=== PATIENT | female | born 1995 | race Caucasian/White ===

== ENCOUNTER 2017-04-12 18:32 | Emergency (ER) | payer MEDICAID ==
[~2017-04-12] VITALS: Ht 165.1 cm; Wt 63.1 kg
[~2017-04-12 18:32] MED LIST: ALBU18HF2 IH; ALBU8HFA PO; ALPR-624 PO; AZIT250T27 PO; CLIN-26 PO; CLIN-79 PO; CLIN300C17 PO; PRED50TA PO
[2017-04-12 19:11] VITALS: BP 150/120
[2017-04-12] MEDS ORDERED: acetaminophen 325mg tablet PO ONE (19:20)
[2017-04-12] MEDS ORDERED: ibuprofen 200mg tablet PO ONE (19:25)
[2017-04-12 20:01] LABS: BASOPHILS # (AUTO) 0.1 X10'3 (0-0.2); BASOPHILS % (AUTO) 0.4 % (0-1); EOSINOPHILS # (AUTO) 0.2 X10'3 (0-0.9); EOSINOPHILS % (AUTO) 0.7 % (0-6); HEMATOCRIT 39.4 % (35.0-45.0); HEMOGLOBIN 13.4 g/dl (12.0-16.0); LYMPHOCYTES # (AUTO) 2.8 X10'3 (1.1-4.8); LYMPHOCYTES % (AUTO) 12.8 % (21-51); MEAN CORPUSCULAR HEMOGLOBIN 28.8 PG (27.0-31.0); MEAN CORPUSCULAR VOLUME 84.7 FL (78-98); MEAN PLATELET VOLUME 8.2 FL (7.4-10.4); MONOCYTES # (AUTO) 1.2 X10'3 (0-0.9); MONOCYTES % (AUTO) 5.4 % (2-12); NEUTROPHILS # (AUTO) 17.4 X10'3 (1.8-7.7); NEUTROPHILS % (AUTO) 80.7 % (42-75); PLATELET COUNT 425 X10'3 (140-440); RED BLOOD COUNT 4.65 X10'6 (4.20-5.60); RED CELL DISTRIBUTION WIDTH 17.2 % (11.5-14.5); WHITE BLOOD COUNT 21.6 X10'3 (4.5-11.0)
[2017-04-12 20:11] LABS: PROTHROMBIN TIME 10.8 SECONDS (9.0-12.0)
[2017-04-12 20:14] LABS: CLARITY,URINE CLEAR (Clear); COLOR,URINE YELLOW (Yellow); GLUCOSE, URINE NEGATIVE (Neg); KETONES,URINE NEGATIVE (Neg); LEUKOCYTE ESTERASE ,URINE SMALL (Neg); NITRITES, URINE NEGATIVE (Neg); OCCULT BLOOD,URINE NEGATIVE (Neg); PH,URINE 6.5 (4.8-8.0); PROTEIN,URINE NEGATIVE (Neg)
[2017-04-12 20:15] LABS: ALANINE AMINOTRANSFERASE 155 U/L (12-78); ALBUMIN 3.2 G/DL (3.4-5.0); ALBUMIN/GLOBULIN RATIO 0.5 (1.1-1.5); ALKALINE PHOSPHATASE 100 IU/L (46-116); AMYLASE 22 U/L (25-115); ANION GAP 8 (8-16); ASPARTATE AMINO TRANSFERASE 105 U/L (10-37); BILIRUBIN,TOTAL 1.4 MG/DL (0.1-1.0); BLOOD UREA NITROGEN 10 MG/DL (7-18); BUN/CREATININE RATIO 13.3 (6.6-38.0); CALCIUM 9.4 MG/DL (8.5-10.1); CHLORIDE 98 MMOL/L (99-107); CREATININE 0.75 MG/DL (0.40-0.90); LIPASE 81 U/L (73-393); POTASSIUM 4.6 MMOL/L (3.5-5.1); SODIUM 133 MMOL/L (135-145); TOTAL CARBON DIOXIDE 26.7 MMOL/L (24-32); TOTAL PROTEIN 9.5 G/DL (6.4-8.2); eGFR > 90 ML/MIN
[2017-04-12 20:16] LABS: URINE HCG NEGATIVE (NEG)
[2017-04-12 20:21] LABS: UA COLLECTION TYPE CLN CATCH MIDSTREAM
[2017-04-12 20:22] LABS: BACTERIA,URINE FEW /HPF (Neg); RBC,URINE 0-2 /HPF (0-2); SQUAMOUS EPITHELIAL CELL,UR FEW /LPF (FEW)
[2017-04-12 20:26] LABS: GLUCOSE 99 MG/DL (70-104)
== END 2017-04-12 20:57 | disposition left against medical advice (07) ==
LOC: ER 19:11
DX: R07.81 Pleurodynia (principal)
CPT/HCPCS: 36415; 80053; 81001; 81025; 82150; 83690; 84145; 85025; 85610; 87088; 93005; 99281

== ENCOUNTER 2017-06-20 20:19 | Emergency (ER) | payer MEDICAID ==
[~2017-06-20] VITALS: Ht 162.6 cm; Wt 65.5 kg
[2017-06-20 20:25] VITALS: BP 155/91
== END 2017-06-20 21:12 | disposition left against medical advice (07) ==
LOC: ER 20:19
DX: K13.79 Other lesions of oral mucosa (principal); Z53.21 Procedure and treatment not carried out due to patient leaving prior to being seen by health care provider

== ENCOUNTER 2017-08-08 00:59 | Emergency (ER) | payer MEDICAID ==
[~2017-08-08] VITALS: Ht 167.6 cm; Wt 69.0 kg
[~2017-08-08 00:59] MED LIST changes: -CLIN-79 PO; +CLIN150C8 PO
[2017-08-08 02:25] VITALS: BP 131/71
== END 2017-08-08 02:27 | disposition home or self-care (01) ==
LOC: ER 01:00
DX: R11.0 Nausea (principal); R53.81 Other malaise; G89.29 Other chronic pain; J45.909 Unspecified asthma, uncomplicated; Z86.14 Personal history of Methicillin resistant Staphylococcus aureus infection; F15.90 Other stimulant use, unspecified, uncomplicated; F11.90 Opioid use, unspecified, uncomplicated; F17.200 Nicotine dependence, unspecified, uncomplicated; Z79.899 Other long term (current) drug therapy; Z60.2 Problems related to living alone; Z59.0 Homelessness; Z56.0 Unemployment, unspecified
CPT/HCPCS: 99283

== ENCOUNTER 2018-07-25 21:15 | Inpatient (IN) | payer MEDICAID ==
[~2018-07-25] VITALS: Ht 167.6 cm; Wt 79.4 kg
[~2018-07-25 21:15] MED LIST changes: +CEPH500C5 PO; +IBUP-1985 PO
[2018-07-25 22:33] LABS: ALANINE AMINOTRANSFERASE 25 U/L (12-78); ALBUMIN/GLOBULIN RATIO 0.6 (1.1-1.5); ALKALINE PHOSPHATASE 112 IU/L (46-116); ANION GAP 4 (8-16); ASPARTATE AMINO TRANSFERASE 23 U/L (10-37); BILIRUBIN,TOTAL 1.3 MG/DL (0.1-1.0); BLOOD UREA NITROGEN 9 MG/DL (7-18); CALCIUM 8.9 MG/DL (8.5-10.1); CHLORIDE 100 MMOL/L (99-107); CREATININE 0.75 MG/DL (0.40-0.90); GLUCOSE 105 MG/DL (70-104); POTASSIUM 3.7 MMOL/L (3.5-5.1); SODIUM 132 MMOL/L (135-145); TOTAL CARBON DIOXIDE 28.1 MMOL/L (24-32); TOTAL PROTEIN 8.2 G/DL (6.4-8.2); eGFR > 90 ML/MIN
--- NOTE | 2018-07-25 22:45 | NUR ---
AFTER 2 PIV ATTEMPTS ASKED MOLD LOFT WORKER MARCI FOR ASSISANCE IN STARTING AN IV
[2018-07-25 23:36] LABS: BASOPHILS % (AUTO) 0.2 % (0-1); EOSINOPHILS # (AUTO) 0.3 X10'3 (0-0.9); EOSINOPHILS % (AUTO) 2.2 % (0-6); HEMATOCRIT 34.8 % (35.0-45.0); HEMOGLOBIN 11.6 g/dl (12.0-16.0); LYMPHOCYTES # (AUTO) 1.4 X10'3 (1.1-4.8); LYMPHOCYTES % (AUTO) 9.4 % (21-51); MEAN CORPUSCULAR HEMOGLOBIN 28.4 PG (27.0-31.0); MEAN CORPUSCULAR HGB CONC 33.4 g/dL (33.0-36.5); MEAN PLATELET VOLUME 8.9 FL (7.4-10.4); MONOCYTES # (AUTO) 0.9 X10'3 (0-0.9); MONOCYTES % (AUTO) 6.1 % (2-12); NEUTROPHILS # (AUTO) 12.4 X10'3 (1.8-7.7); NEUTROPHILS % (AUTO) 82.1 % (42-75); PLATELET COUNT 251 X10'3 (140-440); RED BLOOD COUNT 4.09 X10'6 (4.20-5.60); RED CELL DISTRIBUTION WIDTH 15.5 % (11.5-14.5); WHITE BLOOD COUNT 15.1 X10'3 (4.5-11.0)
[2018-07-26] MEDS ORDERED: vancomycin/NS 1 GM ADD-VANTAGE 250 ML IV ONE
[2018-07-26] MEDS ORDERED: piperacillin/tazo 3.375gm/50ml 50 ML IV ONE
[2018-07-26] MEDS ORDERED: morphine 4 MG/ML inj SYRINge IV ONE ×3 (00:05→04:05)
[2018-07-26] MEDS ORDERED: ondansetron/PF 4mg/2ml inj IV ONE (00:05)
[2018-07-26] MEDS ORDERED: normal saline 1000ML IV soln IV ONE (00:05)
--- NOTE | 2018-07-26 00:40 | NUR ---
ATTEMPTED RIGHT EJ
[2018-07-26 00:42] LABS: MAGNESIUM 1.7 MG/DL (1.5-2.4)
--- NOTE | 2018-07-26 00:59 | NUR ---
informed dr haas of 4 different rns attempting iv lines including tonya
--- NOTE | 2018-07-26 01:02 | NUR ---
2 rn verbal consent for central line placement
[2018-07-26] MEDS ORDERED: iohexol 300mg/ml 100ml inj. ONE (01:10)
--- NOTE | 2018-07-26 01:38 | NUR ---
to cta after cxr confirmed placement per dr haas
--- NOTE | 2018-07-26 02:02 | NUR ---
BACK IN ROOM, ULTRASOUND IN PROGRESS
[2018-07-26] MEDS ORDERED: magnesium hydroxide 30ml (MOM) UD suspension PO PRN (03:35)
[2018-07-26] MEDS ORDERED: mag hydrox/Alum hydrox/simeth 30ml oral suspension PO PRN (03:35)
[2018-07-26] MEDS ORDERED: ondansetron/PF 4mg/2ml inj IV PRN (03:35)
[2018-07-26] MEDS ORDERED: acetaminophen 325mg tablet PO PRN (03:35)
[2018-07-26] MEDS ORDERED: morphine/NS 5 mg/ml CADD 50 ML IV SCH (03:37)
[2018-07-26] MEDS ORDERED: CADD PCA waste documentation MC PRN (03:40)
[2018-07-26] MEDS ORDERED: naloxone 0.4 mg/ml inj IV PRN (03:40)
[2018-07-26] MEDS: normal saline 1000ml 1,000 ML IV SCH ×2 (03:47→13:32)
--- NOTE | 2018-07-26 04:01 | NUR ---
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
--- NOTE | 2018-07-26 04:50 | NUR ---
NURSING SULFATE DRIER MACHINE OPERATOR WILL CALL BACK REGARDING ROOM, IF ROOM NOT AVAILABLE, HE WILL BRING A CADD PUMP AND THE MEDICATION
--- NOTE | 2018-07-26 05:11 | NUR ---
PHONNE REPORT TO MAME TREADWELL; PATIENT DOES NOT TAKE ANY HOME MEDICATIONS
--- NOTE | 2018-07-26 05:30 | NUR ---
Received report from Crystal VILCHIS from ED. Patient came up to floor via gurney. Vitals taken. MRSA swab done. Bed locked & low position. Call light within reach.
[2018-07-26 05:44] VITALS: BP 114/51
--- NOTE | 2018-07-26 06:41 | NUR ---
Problems reprioritized. Patient report given, questions answered & plan of care reviewed with Luz VILCHIS.
[2018-07-26] MEDS: morphine/NS 5 mg/ml CADD 50 ML IV SCH ×2 (07:59→09:00)
[2018-07-26] MEDS ORDERED: heparin, porcine 5000 units/ml vial SQ SCH (08:00)
[2018-07-26] MEDS ORDERED: piperacillin/tazo 3.375gm/50ml 50 ML IV SCH (08:00)
[2018-07-26 10:00] VITALS: BP 108/53
[2018-07-26] MEDS ORDERED: vancomycin/NS 1 GM ADD-VANTAGE 250 ML IV SCH ×2 (10:00→12:00)
[2018-07-26] MEDS ORDERED: HYDROcodone/acetaminophen 10/325mg tab PO PRN (11:05)
[2018-07-26] MEDS ORDERED: morphine 2 MG/ML inj. syringe IV PRN (11:25)
[2018-07-26 13:33] LABS: HCG SERUM QL NEGATIVE
--- NOTE | 2018-07-26 14:32 | NUR ---
PAGER ID: [phone] MESSAGE: Luz [phone] Tomas in [phone] she is attempting to leave [facility] could you please call me Addendum: 07/26/18 at 1447 by Jackie Fairbanks RN spoke to MD- explained that the pt's family member, an aunt, is very confrontational and demanding nicotine patch, something for anxiety, and for her treatment to include treating her for her heroin addiction. ALso they want the central line out of her neck because it is uncomfortable. Pt is trying to leave [facility] and was caught by another RN on the way to the elevator. She has been sleeping all day and never asked for anything for anxiety, or a nicotine patch. The PICC line RN will be here to place an extended and the pt was notified of this twice earlier today. I explained to the pt that MD will not be able to rx abx if she leaves ama, and that the pt really should stay for IV abx due to infection in her leg which will not heal on its own. Still demanding to speak to the MD. MD will not be able to be able to come up at this time and states that my explanation to the pt is sufficient. Orders received for one time dose of ativan and a nicotine patch, should the pt choose to stay. ANd I will remove the central line promptly.
[2018-07-26] MEDS ORDERED: lactobacillus rhamnosus 10,000 MMU CELLS/CAPSULE PO SCH (20:00)
[2018-07-27] MEDS ORDERED: VANCOMYCIN LEVEL IV ONE (01:30)
== END 2018-07-26 15:10 | disposition left against medical advice (07) | DRG 383 ==
LOC: ER 21:16 → ORTHO 4S 07-26 04:53
PROVIDERS: ADMIT Internal Medicine; ATTEND Internal Medicine
PROC: 02HV33Z Insertion of Infusion Device into Superior Vena Cava, Percutaneous Approach (ICD-10-PCS; principal; 2018-07-25)
PROC: B548ZZA Ultrasonography of Superior Vena Cava, Guidance (ICD-10-PCS; 2018-07-25)
PROC: BQ2S1ZZ Computerized Tomography (CT Scan) of Left Lower Extremity using Low Osmolar Contrast (ICD-10-PCS; 2018-07-26)
DX: L03.116 Cellulitis of left lower limb (principal); K72.90 Hepatic failure, unspecified without coma; B19.20 Unspecified viral hepatitis C without hepatic coma; J45.909 Unspecified asthma, uncomplicated; Z60.2 Problems related to living alone; Z53.21 Procedure and treatment not carried out due to patient leaving prior to being seen by health care provider; F11.90 Opioid use, unspecified, uncomplicated; F15.90 Other stimulant use, unspecified, uncomplicated; G89.29 Other chronic pain; Z59.0 Homelessness
CPT/HCPCS: 36415; 36556; 71045; 73701; 80053; 83605; 83735; 84145; 84703; 85025; 87040; 87070; 93971; 96365; 96368; 96375; 96376; 99285; G0378; J1644; J2270; J2405; J2543; J3370; J7030; Q9967

== ENCOUNTER 2018-11-09 00:08 | Emergency (ER) | payer MEDICAID ==
[~2018-11-09] VITALS: Ht 167.6 cm; Wt 72.7 kg
[2018-11-09 00:13] VITALS: BP 126/74
[2018-11-09] MEDS ORDERED: LIDOcaine 1% w/EPI 1:200,000 injection 10mL vial IM ONE (00:40)
[2018-11-09] MEDS ORDERED: LIDOcaine 1% W/epiNEPHrine 1:100,000 20ml vial SQ ONE (00:45)
[2018-11-09] MEDS ORDERED: SULF1TAB49 PO (01:22)
[2018-11-09] MEDS ORDERED: IBUP-1984 PO (01:22)
[2018-11-09] MEDS ORDERED: CEPH500C5 PO (01:22)
== END 2018-11-09 01:32 | disposition home or self-care (01) ==
LOC: ER 00:09
DX: L02.415 Cutaneous abscess of right lower limb (principal); L03.115 Cellulitis of right lower limb; J45.909 Unspecified asthma, uncomplicated; G89.29 Other chronic pain; F15.90 Other stimulant use, unspecified, uncomplicated; F11.90 Opioid use, unspecified, uncomplicated; Z56.0 Unemployment, unspecified; Z59.0 Homelessness
CPT/HCPCS: 10060; 99283

== ENCOUNTER 2019-07-02 22:56 | Emergency (ER) | payer MEDICAID ==
[~2019-07-02] VITALS: Ht 165.1 cm; Wt 77.3 kg
[2019-07-02 23:03] VITALS: BP 137/82
[2019-07-02] MEDS ORDERED: CLIN300C70 PO (23:28)
[2019-07-02] MEDS ORDERED: ondansetron 4mg rapidly disintigrating tab PO ONE (23:30)
[2019-07-02] MEDS ORDERED: HYDROcodone/acetaminophen 5mg/325mg tablet PO ONE (23:30)
== END 2019-07-03 | disposition home or self-care (01) ==
LOC: ER 22:56
DX: K04.7 Periapical abscess without sinus (principal); J45.909 Unspecified asthma, uncomplicated; G89.29 Other chronic pain; F15.90 Other stimulant use, unspecified, uncomplicated; F11.90 Opioid use, unspecified, uncomplicated; Z86.19 Personal history of other infectious and parasitic diseases; Z86.14 Personal history of Methicillin resistant Staphylococcus aureus infection; Z98.890 Other specified postprocedural states; Z60.2 Problems related to living alone; Z56.0 Unemployment, unspecified; Z59.0 Homelessness; Z79.2 Long term (current) use of antibiotics
CPT/HCPCS: 99283

== ENCOUNTER 2020-11-14 20:06 | Emergency (ER) | payer MEDICAID ==
[~2020-11-14] VITALS: Ht 167.6 cm; Wt 81.8 kg
[2020-11-14 20:11] VITALS: BP 138/84
== END 2020-11-14 22:55 | disposition left against medical advice (07) ==
LOC: ER 20:09
DX: Z53.21 Procedure and treatment not carried out due to patient leaving prior to being seen by health care provider (principal)

== ENCOUNTER 2024-02-19 22:09 | Emergency (ER) | payer MEDICAID ==
[~2024-02-19] VITALS: Ht 167.6 cm; Wt 86.4 kg
[2024-02-19 22:11] VITALS: BP 130/62; PULSE 103; RESP 18; TEMP 98.1; O2SAT 98
== END 2024-02-20 02:11 | disposition left against medical advice (07) ==
LOC: ER 22:10
DX: M79.604 Pain in right leg (principal); Z53.21 Procedure and treatment not carried out due to patient leaving prior to being seen by health care provider